=== PATIENT | male | born 1985 | race Caucasian/White ===

== ENCOUNTER 2018-03-15 05:37 | Day surgery (SDC) | payer OTHER ==
[~2018-03-15] VITALS: Ht 175.3 cm; Wt 89.4 kg
--- NOTE | ~2018-03-15 | O ---
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 PROCEDURE: Right knee arthroscopy and notchplasty for relief of anterior cruciate ligament impingement and debridement of chondromalacia of lateral femoral condyle and patellofemoral articulation with limited debridement of posttraumatic degenerative tearing of both the medial and lateral meniscus. SURGEON: Richard Kahn M.D. INDICATIONS: This 33-year-old gentleman who underwent previous right knee surgical reconstruction for a complex knee injury about 10 years ago. I believe this included an open patellar tendon ACL reconstruction with conservative treatment of an MCL sprain, debridement of generalized meniscus damage both medially and laterally as well as an osteochondral graft at the lateral femoral condyle. Now, he has a sense of ongoing knee discomfort and crepitus, which I feel is consistent with these multiple problems and some ongoing joint surface damage. We have elected to go ahead with arthroscopic evaluation for debridement at this time. DESCRIPTION OF PROCEDURE: The patient was taken to the operating room where he was placed under general anesthesia. Prophylactic intravenous antibiotics were administered. The right knee and leg were meticulously prepped and draped. A thigh tourniquet was applied and inflated to 300 mmHg. A lateral suprapatellar inflow cannula was placed and the arthroscope and probe were introduced through parapatellar tendon approaches. The various compartments were sequentially visualized and documented with arthroscopic photography. The medial compartment revealed satisfactory cartilage on the medial femoral condyle and the medial tibial plateau. There were few areas of mild cartilage surface damage on the femoral condyle, which required limited debridement. This was rather superficial involving a grade 1 to grade 2 damage in a fairly small area. The rest of the cartilage appears to be intact and stable. The [address] [address] OPERATIVE REPORT Name: SUHA MCCLAIN III Room #: DEP [facility] Ashley#: [id number] Admission: 03/15/18 Attend Phys: Richard Kahn MD Discharge: 03/15/18 Date of : 85 Report #: [id number] meniscus demonstrated significant decrease in size, suggesting there was significant previous surgical debridement. There was some fraying at the anterior third along the inner margin, which was debrided. The rest of the meniscus seemed to be intact and stable, but probably represented only about the outer 1/3-1/2, consistent with significant previous surgical debridement. No other significant problems in the medial compartment were identified. The intercondylar notch reveals the cruciate ligament graft to still be present and intact and functional. There was, however, rather marked synovial hypertrophy and bony hypertrophy with significant spurring and narrowing of the notch, which seemed to impinge on the graft causing some irritation and fraying. A liberal notchplasty was performed, which resulted in excellent improvement in this graft impingement. This allowed then better assessment of the graft itself. The graft was positioned quite posteriorly, but seems to be in adequate position and seemed to function in a satisfactory fashion. There was slight laxity with anterior drawer and Alexandru test, but the graft comes to a solid endpoint and seems to be functional and working well. The posterior crucial ligament seems to be intact. No further debridement in the intercondylar notch was required. The lateral compartment reveals significant loss of lateral meniscus, consistent with a previous partial or near complete lateral meniscectomy. There was some residual rim, which was frayed and irregular, particularly at the mid lateral and anterior aspect. This area was gently debrided to a more smooth even margin. There was significant diffuse posttraumatic degenerative chondromalacia on the femoral condyle. This looks a bit irregular, probably consistent with some sort of an osteochondral grafting procedure in the distant past. Unfortunately, there is very little cartilage left in this area of repair. The surface is rather nodular and irregular with some exposed subchondral bone and other areas of rather irregular nodular cartilage remaining. Very limited debridement was performed removing only the loose irregular fragmented cartilage and trying to smooth the margin to some extent. There is better cartilage in the more anterior femoral condyle and far posterior femoral condyle. The corresponding surface on the lateral tibial plateau was in much better shape with mild fissuring and grooving and some generalized cartilage thinning, but was still very satisfactory appearance of the cartilage. No debridement that was necessary. The patellofemoral articulation reveals a few areas of grade 2 chondromalacia on the patellar surface and one area of slightly loosened delaminating cartilage. This was rather small and limited debridement was performed. The corresponding surface on the trochlear region of the femur was more severely involved with generalized degenerative chondromalacia with grade 3 to grade 4 damage in the mid and deepest portion of the trochlea. There were few areas of loose irregular delaminating cartilage where gentle debridement was performed trying to preserve as much cartilage as possible. The suprapatellar pouch revealed [facility] [address] [place] [address] OPERATIVE REPORT Name: SUHA MCCLAIN NICKY Room #: DEP [facility] Carmen.#: [id number] Admission: 03/15/18 Attend Phys: Richard Kahn MD Discharge: 03/15/18 Date of : 85 Report #: [id number] some loose cartilage debris, which was evacuated and mild synovial hypertrophy. No other significant abnormalities were identified. In general summary, this gentleman has unfortunately rather significant posttraumatic degenerative chondromalacia throughout the knee, most severe at the lateral femoral condyle and slightly less at the patellofemoral articulation. There is much less cartilage damage in the medial compartment, but he has little remaining medial meniscus. The cruciate ligament graft seems to be functioning satisfactorily. I expect he will have significant ongoing knee discomfort and crepitus and probably gradually advancing degenerative changes in this joint. We will discuss methods of joint preservation. At this point, the joint was injected with 80 mg of Depo-Medrol and 30 mL of 0.5% Marcaine with epinephrine. The puncture sites were closed with interrupted nylon suture. Sterile dressing was applied. The patient was awakened and returned to the recovery room in good condition. <ELECTRONICALLY SIGNED> By: Richard Kahn MD 03/19/18 1021 [id number] Richard Kahn MD /nt
[~2018-03-15 05:37] MED LIST: ALLEGRA ALLERG180 MG PO
[2018-03-15 07:05] VITALS: BP 143/68
[2018-03-15 08:30] VITALS: BP 143/68
== END 2018-03-15 10:00 | disposition home or self-care (01) ==
LOC: OR 05:37 → TBA 05:37 → OR 08:56
DX: M23.203 Derangement of unspecified medial meniscus due to old tear or injury, right knee (principal); M23.200 Derangement of unspecified lateral meniscus due to old tear or injury, right knee; M94.261 Chondromalacia, right knee; M25.861 Other specified joint disorders, right knee
CPT/HCPCS: 50010; 50101; 50405; 51038; 54170; 56526; 62110; 62900; 70005